=== PATIENT | female | born 1970 | race Hispanic/Latino ===

== ENCOUNTER 2024-05-04 17:36 | Emergency (ER) | payer OTHER ==
[~2024-05-04] VITALS: Ht 167.6 cm; Wt 88.6 kg
[2024-05-04 17:45] VITALS: PULSE 92; RESP 20; TEMP 99.1
[2024-05-04] MEDS ORDERED: ACETAMINOPHEN 325 MG TAB PO ONE (18:30)
[2024-05-04] MEDS ORDERED: BENZONATATE100 MG PO (19:05)
[2024-05-04] MEDS ORDERED: AZITHROMYCIN250 MG PO (19:06)
[2024-05-04] MEDS ORDERED: VENTOLIN HFA18 GM INH (19:08)
[2024-05-04 19:55] VITALS: BP 141/67; PULSE 92; RESP 20; TEMP 99.1; O2SAT 97
== END 2024-05-04 19:55 | disposition home or self-care (01) ==
LOC: FSED 17:40
DX: R05.9 Cough, unspecified (principal); J20.9 Acute bronchitis, unspecified; A49.9 Bacterial infection, unspecified
CPT/HCPCS: 71046; 83518; 87400; 99283

== ENCOUNTER 2025-02-15 08:19 | Emergency (ER) | payer OTHER ==
[~2025-02-15] VITALS: Ht 165.1 cm; Wt 86.2 kg
[~2025-02-15 08:19] MED LIST: AZITHROMYCIN250 MG PO; BENZONATATE100 MG PO; VENTOLIN HFA18 GM INH
[2025-02-15 08:20] VITALS: PULSE 76; RESP 16; TEMP 98.1; O2SAT 97
[2025-02-15] MEDS: LIDOCAINE HCL 1% LOCAL INJ 20 ML VIAL INJ STA (08:34)
[2025-02-15] MEDS ORDERED: TETANUS/DIPHTHERIA TOX ADULT 0.5 ML SYR ONE (08:37)
[2025-02-15] MEDS ORDERED: ULTRAM 50MG50 MG PO (08:42)
[2025-02-15] MEDS ORDERED: CEPHALEXIN500 MG PO (08:42)
[2025-02-15] MEDS: DIPHTH,PERTUSS(ACELL),TET VAC 0.5 ML SYRINGE IM STA (08:56)
== END 2025-02-15 08:46 | disposition home or self-care (01) ==
LOC: FSED 08:26
DX: S61.212A Laceration without foreign body of right middle finger without damage to nail, initial encounter (principal); W20.8XXA Other cause of strike by thrown, projected or falling object, initial encounter; Y93.G3 Activity, cooking and baking; Y92.89 Other specified places as the place of occurrence of the external cause; I10 Essential (primary) hypertension
CPT/HCPCS: 90471; 90714; 99283; J2003